=== PATIENT | male | born 1985 | race Caucasian/White ===

== ENCOUNTER 2017-01-27 15:45 | Emergency (ER) | payer OTHER ==
[~2017-01-27] VITALS: Ht 177.8 cm; Wt 73.6 kg
[2017-01-27 15:48] VITALS: BP 119/74; PULSE 64; RESP 18; O2SAT 97
--- NOTE | 2017-01-27 16:37 | ED.REPORT ---
HPI-Psychiatric Illness Date of Service Jan 27, 2017 ED Provider: Chase Martinez PA-C Jax is a 31-year-old male with history of schizoaffective disorder presents emergency department for a mental health evaluation. Patient is coming from [facility], a voluntary drug rehabilitation facility. 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 Reports hearing voices for the last 2 days. Patient states that they originate from outside his head, sometimes associated people who are in the room and sometimes not. He states that the content is abusive and demeaning. He is experienced similar symptoms previously and was hospitalized at [facility]. He does not take any medications at this time and does not wish to. He hopes to deal with this without medications. His first great frustration with his symptoms and states that "if this continues I may have to harm myself." He reports 3 previous episodes of suicide attempts through pills and cutting on his arms, most recent was in 2013. He was asked to present to the emergency department by the staff at [facility] as they do not have appropriate mental health resources there for him. The patient denies physical complaints and reports a history of ulcerative colitis. Nursing Notes Stated Complaint: PSYCH EVAL Chief Complaint: Psychiatric Complaint Nursing Notes Reviewed: Yes Allergies: Coded Allergies: No Known Allergies (Unverified , 01/27/17) General Time Seen by MD: 16:09 Chief Complaint Hallucinations, auditory Risk-Psychiatric Illness Suicide Risk Stratification Suicide Risk Factors - Adult: : Previous attempt: Prior psych admission RF Statements: Risk factors reviewed Past Medical History Past Medical History Ulcerative colitis Review of Systems General: Denies fever, chills, malaise. HEENT: Denies congestion, headache, sore throat. Respiratory: Denies dyspnea, cough, shortness of breath, wheezing. Cardiovascular: Denies chest pain, palpitations. Gastrointestinal: Denies vomiting, diarrhea, abdominal pain. Genitourinary: Denies frequency, urgency, dysuria, hematuria. Otherwise as noted in HPI. Physical Exam General: Well appearing, well developed, well nourished, no acute distress. Head: Atraumatic, normocephalic. No mastoid tenderness. Eyes: No scleral icterus or injection. No discharge. PERRL. Vision grossly intact. Ears: Pinna and tragus nontender with manipulation. External auditory canal patent, atraumatic and without discharge. Tympanic membrane conteh, shiny and translucent without fluid, bulging, retraction or perforation. Hearing grossly intact. Nose: Symmetrical, nares patent without discharge. No frontal or maxillary sinus tenderness. Mouth/pharynx: normal dentition, mucus membranes moist. Tonsils 2+ and symmetrical, uvula midline. Pharynx noninjected, no cobblestoning or discharge. Voice clear. Neck: No tenderness or lymphadenopathy. Trachea midline. Respiratory: Regular rate and rhythm. Breath sounds present, clear to auscultation and equal bilaterally. No respiratory distress. No increased work of breathing, speaks in complete sentences. Cardiovascular: Regular rate and rhythm, without murmur, gallop or rub. No pedal edema. Gastrointestinal: Abdomen flat and non-tender without guarding or rebound. Bowel sounds normoactive. Skin: Warm and dry. Neurological: Normal gait. Normal finger-nose, heel-johnson, rapid hand. Negative pronator drift. Patellar reflexes present and equal bilaterally. Sensation grossly intact in extremities. Cranial nerves: Vision grossly intact, PERRL, EOMI. Facial motion symmetrical, sensation to light touch over forehead, maxilla and mandible present and equal B /L. Voice clear and fluent, no drooling/pooling of saliva, uvula rises midline. Psychological: Alert and oriented. Speech appropriate, linear and logical if slightly rapid. Behavior appropriate. He is not obviously responding to internal stimuli. Initial Vital Signs Vital Signs (First) Date Time Temp Pulse Resp B/P Pulse Ox O2 Delivery O2 Flow Rate FiO2 01/27/17 15:48 36.5 64 18 119/74 97 Room Air Normal Interpretation & Diagnostics Lab Results Interpretation Result Diagram: 01/27/17171601/27/171716 Test 01/27/17 16:31 01/27/17 17:17 Hold Urine Received (Received) White Blood Count 7.8th/mm3 (3.8-10.1) Red Blood Count 4.78mil/mm3 (4.40-5.80) Hemoglobin 14.8g/dL (13.8-17.2) Hematocrit 43.4% (41.0-50.0) Mean Corpuscular Volume 90.8fL (81-100) Mean Corpuscular Hemoglobin 31.0pg (27.0-35.0) Mean Corpuscular Hemoglobin Concent 34.1% (32.0-37.0) Red Cell Distribution Width 13.2% (12.3-15.4) Platelet Count 212bil/L (150-400) Neutrophils (%) (Auto) 49.8% (40-74) Lymphocytes (%) (Auto) 39.0% (14-46) Monocytes (%) (Auto) 7.3% (4-12) Eosinophils (%) (Auto) 3.2% (0-5) Basophils (%) (Auto) 0.4% (0-3) Sodium Level 136mEq/L (134-144) Potassium Level 4.3mEq/L (3.5-5.2) Chloride Level 100mEq/L (97-108) Carbon Dioxide Level 22mmol/L (18-29) Blood Urea Nitrogen 15mg/dL (6-20) Creatinine 0.67mg/dL (0.76-1.27) Estimat Glomerular Filtration Rate 147mL/min (>59) Glucose Level 99mg/dL (60-99) Calcium Level 9.2mg/dL (8.5-10.1) Total Bilirubin 0.2mg/dL (0.0-1.2) Aspartate Amino Transf (AST/SGOT) 18U/L (0-50) Alanine Aminotransferase (ALT/SGPT) 15U/L (0-44) Alkaline Phosphatase 50U/L (25-150) Total Protein 7.3g/dL (6.4-8.4) Albumin 4.2g/dL (3.4-5.0) Thyroid Stimulating Hormone (TSH) 1.860uIU/mL (0.450-4.500) Hold Aleman Top Tube Received (Received) Re-Eval/Medical Decision Med Decision/Clinical Course 31-year-old male with a history of schizoaffective disorder, methamphetamine abuse, suicide attempts presents to emergency department complaining of increasing auditory hallucinations. Patient states he hears voices in the home with him, often uses, sometimes associated with people were actually in the room. He finds he is upsetting and is afraid he may be driven to harm himself. Denies physical complaints. He is not interested in medication. Physical examination is benign with normal neurological examination, vital signs. Dip urine tox is negative, breathalyzer is 0. CBC, CMP and TSH are ordered. These returned unremarkable. Patient needs with AMBIKA Earl. Following her discussion he is amenable to medication and inpatient treatment. [facility] has accepted the patient, anticipating transfer. Care transferred to Dr. Bullock at shift change, who will meet with the patient. Re-Evaluation/Progress #1: Time of Eval: 20:26 Re-Evaluation/Progress Note: Patient reports that he is doing well Re-Evaluation/Progress #2: Time of Eval: 20:51 Re-Evaluation/Progress Note: Patient is resting comfortably watching television. He reports he is doing well. I said good-night and informed the patient his care has been been transferred to Dr. Bullock who will be with him shortly. Discharge & Departure Shift Change Sign-Out Patient Care Transferred: Yes (Dr. Bullock) Discussed Complaint(s): Yes Laboratory Evaluation: Lab evaluation discussed Impression: Primary Impression: Psychosis Psychosis type: unspecified psychosis type Qualified Code: F29 - Unspecified psychosis not due to a substance or known physiological condition Additional Impression: Suicidal ideation EDSupervising Provider for APC: Bruno Bullock MD, Seth PA-C Jan 27, 2017 16:37
[2017-01-27 17:28] LABS: BASOPHILS % (AUTO) 0.4 % (0-3); EOSINOPHILS % (AUTO) 3.2 % (0-5); MONOCYTES % (AUTO) 7.3 % (4-12); Mean Corpuscular Volume 90.8 fL (81-100); NEUTROPHILS % (AUTO) 49.8 % (40-74); Platelet Count 212 bil/L (150-400)
[2017-01-27 21:00] VITALS: BP 120/70; PULSE 60; RESP 20; O2SAT 96
[2017-01-28 08:19] VITALS: BP 111/69; PULSE 51; RESP 18; O2SAT 100
== END 2017-01-28 08:25 ==
LOC: SED 15:45
DX: F29 Unspecified psychosis not due to a substance or known physiological condition (principal); R45.851 Suicidal ideations; Z91.5 Personal history of self-harm